=== PATIENT | female | born 1965 ===

== ENCOUNTER 2016-04-27 10:51 | Inpatient (IN) | payer BC ==
[2016-04-24 15:20] LABS: BASOPHILS 0.4 %; BASOPHILS ABSOLUTE 0.02 10/3/uL (0.0-0.16); EOSINOPHILS 1.1 %; EOSINOPHILS ABSOLUTE 0.06 10/3/uL (0.0-0.53); HEMOGLOBIN 11.6 g/dL (12.0-16.0); LYMPHOCYTES 47.5 %; MEAN CORPUS HGB CONC 32.4 g/dL (32.0-36.0); MEAN CORPUSCULAR HEMOGLOB 27.8 pg (26.0-34.0); MEAN PLATELET VOLUME 9.9 fL (9.2-13.0); MONOCYTES 3.6 %; MONOCYTES ABSOLUTE 0.19 10/3/uL (0.21-1.20); NEUTROPHILS 47.4 %; NEUTROPHILS ABSOLUTE 2.49 10/3/uL (2.02-8.40); PLATELET COUNT 230 10/3/uL (150-400); RBC DISTRIBUTION WIDTH 12.9 % (12.0-16.0); RED CELL COUNT 4.18 10/6/uL (4.0-5.6); WHITE BLOOD CELLS 5.3 10/3/uL (4.5-10.5)
[2016-04-24 15:24] LABS: HEMATOCRIT 35.8 % (36.0-48.0); MANUAL DIFF NO %; MEAN CORPUSCULAR VOLUME 85.6 fL (80-100)
[2016-04-24 15:35] LABS: BUN (BLOOD UREA NITROGEN) 11 MG/DL (6-23); CALCIUM, SERUM 8.9 MG/DL (8.5-10.4); CHLORIDE, SERUM 104 MMOL/L (96-112); CO2 (CARBON DIOXIDE) 26 MMOL/L (24-34); CREATININE 0.74 MG/DL (0.55-1.02); GFR AFRICAN AMERICAN 108 ML/MIN (>=60); GFR NON AFRICAN AMERICAN 93 ML/MIN (>=60); GLUCOSE, SERUM 86 MG/DL (60-99); POTASSIUM, SERUM 3.7 MMOL/L (3.5-5.3); SODIUM, SERUM 138 MMOL/L (135-148)
--- NOTE | ~2016-04-27 | CN ---
Consultation Report [facility] [address] [place]. [address] NAME: MACRINA MARSH : 63 STATUS : ADM IN PAT#: [id number] AGE: 51 ADM/REG DATE : 04/27/16 MR#: [id number] REPORT SERV DATE: 04/29/16 DICTATED BY: DATE: REPORT STATUS : Draft TRANSCRIBED BY: MODL DATE: 04/29/16 CONSULTATION DATE OF CONSULTATION: 04/29/2016 CHIEF COMPLAINT/REASON FOR CONSULT: Bradycardia. PRIMARY PLASTIC CUTTER: Dr. Yovany Reardon. HISTORY OF PRESENT ILLNESS: Macrina Marsh is a very pleasant 51-year-old female with a history of CVA in December of 2015 with an occluded left carotid system. She underwent a stent placement to the carotid system by Dr. Vann on 04/27/2016, and has been recovering without symptoms. During the monitoring in the CVICU, the patient has been noted to have bradycardia, and she was placed on a dopamine drip and this has since resolved. The patient's heart rate is 69 beats per minute, off dopamine. The patient has been noted to be mildly hypotensive with blood pressures ranging to a low of 82/44 overnight to a high of 132/60. The patient is currently asymptomatic sitting up in a chair. PAST MEDICAL HISTORY: 1. Peripheral vascular disease, as detailed above. 2. 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 3. Hypertension. 4. Hyperlipidemia. SOCIAL HISTORY: The patient is . She is a former smoker. She does not drink or use extracurricular drugs. ALLERGIES: SHE IS ALLERGIC TO THE ROSUVASTATIN. CURRENT INPATIENT MEDICATIONS: Include: 1. Coreg 3.125 mg p.o. b.i.d. 2. Lexapro. 3. Lipitor 20 mg p.o. daily. 4. Plavix 75 mg p.o. daily. 5. Synthroid 100 mcg p.o. daily. 6. Aspirin 81 mg p.o. daily. REVIEW OF SYSTEMS: All systems reviewed, and is negative except for as dictated in the HPI. PHYSICAL EXAMINATION: VITAL SIGNS: Current heart rate is 69 beats per minute. Blood pressure is overnight have ranged between a low of 82/44 to a high of 132/60, and oxygen saturations 94% on room air. GENERAL: Ms Marsh is a well-groomed, well-appearing 51-year-old female. She does have Consultation Report [address] [place]. [address] NAME: MACRINA MARSH : 63 STATUS : ADM IN [facility]#: [id number] AGE: 51 ADM/REG DATE : 04/27/16 MR#: [id number] REPORT SERV DATE: 04/29/16 DICTATED BY: DATE: REPORT STATUS : Draft TRANSCRIBED BY: MODL DATE: 04/29/16 expressive dysphasia, but is in no acute distress. NECK: I could not appreciate jugular venous distention or carotid bruits at this time. HEART: Regular rate and rhythm. Normal S1, S2. I could not appreciate murmurs, rubs, or gallops. LUNGS: Clear to auscultation in all shaffer. ABDOMEN: Soft and nontender. EXTREMITIES: Warm and well-perfused. I could not appreciate pitting edema. MUSCULOSKELETAL: No clubbing or cyanosis of the digits. LABORATORY DATA: Laboratory results note a hemoglobin of 10.7, hematocrit of 32.1, and a platelet count of 195. Sodium 140, a potassium of 3.4, glucose is 114, and magnesium is 1.8. Previous echocardiogram performed at [facility] demonstrated a normal left ventricular systolic function with an ejection fraction of 60% to 65%. She had moderate aortic valve regurgitation. An EKG performed on admission demonstrated normal sinus rhythm. Repeat EKG has not yet been performed. IMPRESSION, REPORT, AND PLAN: 1. Asymptomatic bradycardia, resolved. 2. Status post right carotid stent, postop day #2. 3. History of cerebrovascular accident with residual expressive aphasia. 4. Asymptomatic hypotension. RECOMMENDATIONS: 1. We would recheck all blood pressures manually. 2. We would check TSH. 3. We would recommend Holter monitor on DC. 4. We would stop dopamine and give mild fluid bolus at this time. 5. If the patient is asymptomatic and has heart rate greater than 40 and a systolic blood pressure greater than 90, she could be safely discharged for outpatient followup. 6. We would check TSH. 7. Stop Coreg. 8. We would increase Lipitor to 40 mg p.o. daily to optimize her medical regimen. It has been my pleasure to participate in her care. Please see followup appointment with Dr. Reardon as previously ordered. Please call with additional questions or change in clinical status. MASHA/DWIGHT Deborah Luong M.D. / [phone] Consultation Report [address] [place]. [address] NAME: MACRINA MARSH : 63 STATUS : ADM IN PAT#: [id number] AGE: 51 ADM/REG DATE : 04/27/16 MR#: [id number] REPORT SERV DATE: 04/29/16 DICTATED BY: DATE: REPORT STATUS : Draft TRANSCRIBED BY: DWIGHT DATE: 04/29/16 CC: Lauren Buckley NP
--- NOTE | ~2016-04-27 | OP ---
Record Of Operation [facility] [address] [place]. [address] NAME: AGUILA LOW : 63 STATUS : DIS IN PAT#: [id number] AGE: 51 ADM/REG DATE : 04/27/16 MR#: [id number] REPORT SERV DATE: 05/04/16 DICTATED BY: CHARLY VANN DATE: 05/04/16 REPORT STATUS : Draft TRANSCRIBED BY: MODRubina DATE: 05/04/16 DATE OF PROCEDURE: 04/27/2016 PREPROCEDURE DIAGNOSIS: Critical right internal carotid artery stenosis. POSTOPERATIVE DIAGNOSIS: 80% left internal carotid artery stenosis. PROCEDURE PERFORMED: 1. Angioplasty stent reconstruction of right internal carotid artery, a 10 x 30 stent, followed by a 5 x 2 angioplasty over 6 mm AngioGuard device. 2. Angioplasty of the distal internal carotid artery, 5 x 4 balloon. ANESTHESIA: Local MAC. COMPLICATIONS: None. INDICATION FOR PROCEDURE: Secondary to this very pleasant 51-year-old female presenting with a history of a stroke involving the left hemisphere subsequent to left ICA occlusion. The patient had evidence of a critical obstruction of the right internal carotid artery. Recommendation was made for arteriography to further define this, potential for endovascular repair if indicated. Risks and benefits discussed. Consent was obtained. DETAILS OF PROCEDURE: The patient was brought to the endovascular operating room, placed in supine position, prepped and draped in routine sterile fashion with attention to the bilateral groin. The right femoral artery was interrogated with ultrasound and found to be compressible. Needle was passed into this artery under direct ultrasound vision. Pictures were then taken and placed in the chart. Next, wires were passed into the arch of the aorta followed by a [place] flush catheter advanced to the arch. A 30-degree arteriogram was then performed to find the patent innominate, left common carotid artery, and left subclavian. The innominate was then cannulated with a glide catheter followed by advancement into the right common carotid artery. An arteriogram was performed in multiple different views with the lateral view showing the 80% lesion of the internal carotid artery proximally. There was noted tortuosity associated with this artery. Next, a sheath was then placed. 5000 units of heparin was given and allowed to circulate. A 6 mm AngioGuard was then passed through the stenosis into the distal carotid and it was during this passage that the distal carotid kinking moved with the filter. The filter was deployed adequately, but the kinking was noted to be severe. Next, a 10 x 30 Cordis Precise stent was then passed just into the internal carotid artery origin just beyond the stenosis and deployed. This was below the level of the kink. 5 x 2 angioplasty was then performed of this segment and this was widely patent. Next, imaging showed severe kinking associated with the filter and angioplasty was then performed after two rounds of nitroglycerin failed to release the spasm associated with the filter. 5 x 4 balloon adequately opened the internal carotid artery. The filter was then retrieved and the artery was noted to be widely patent. No complications noted. The patient was neurologically intact throughout the entire procedure. Wires, catheters, and sheaths were then removed. The right groin was then closed with Angio Seal. The patient tolerated the procedure well. Record Of Operation [facility] [address] [facility] [place]. [address] NAME: AGUILA LOW : 63 STATUS : DIS IN PAT#: [id number] AGE: 51 ADM/REG DATE : 04/27/16 MR#: [id number] REPORT SERV DATE: 05/04/16 DICTATED BY: CHARLY VANN DATE: 05/04/16 REPORT STATUS : Draft TRANSCRIBED BY: DWIGHT DATE: 05/04/16 CL/DWIGHT Charly Vann M.D. / [id number] CC: Lauren Buckley
[~2016-04-27 10:51] MED LIST: ASAB PO; COREG3 PO; LEXAPRO10 PO; LIPITOR20 PO; SYN1 PO
[2016-04-28 04:00] LABS: BASOPHILS 0.2 %; BASOPHILS ABSOLUTE 0.01 10/3/uL (0.0-0.16); EOSINOPHILS 0.9 %; EOSINOPHILS ABSOLUTE 0.06 10/3/uL (0.0-0.53); HEMOGLOBIN 10.4 g/dL (12.0-16.0); IMMATURE GRANULOCYTES 0.2 %; IMMATURE GRANULOCYTES ABSOLUTE 0.01 10/3/uL (0.0-0.11); LYMPHOCYTES 31.2 %; LYMPHOCYTES ABSOLUTE 2.04 10/3/uL (0.67-4.30); MEAN CORPUS HGB CONC 32.5 g/dL (32.0-36.0); MEAN CORPUSCULAR HEMOGLOB 28.3 pg (26.0-34.0); MEAN PLATELET VOLUME 9.8 fL (9.2-13.0); MONOCYTES 4.1 %; MONOCYTES ABSOLUTE 0.27 10/3/uL (0.21-1.20); NEUTROPHILS 63.4 %; NEUTROPHILS ABSOLUTE 4.15 10/3/uL (2.02-8.40); PLATELET COUNT 195 10/3/uL (150-400); RBC DISTRIBUTION WIDTH 12.7 % (12.0-16.0); RED CELL COUNT 3.68 10/6/uL (4.0-5.6); WHITE BLOOD CELLS 6.5 10/3/uL (4.5-10.5)
[2016-04-28 04:05] LABS: MANUAL DIFF NO %
[2016-04-28 04:26] LABS: BUN (BLOOD UREA NITROGEN) 10 MG/DL (6-23); CALCIUM, SERUM 8.5 MG/DL (8.5-10.4); CHLORIDE, SERUM 105 MMOL/L (96-112); CO2 (CARBON DIOXIDE) 25 MMOL/L (24-34); CREATININE 0.53 MG/DL (0.55-1.02); GFR AFRICAN AMERICAN 127 ML/MIN (>=60); GFR NON AFRICAN AMERICAN 109 ML/MIN (>=60); GLUCOSE, SERUM 114 MG/DL (60-99); POTASSIUM, SERUM 3.5 MMOL/L (3.5-5.3); SODIUM, SERUM 140 MMOL/L (135-148)
[2016-04-28 23:47] LABS: HEMATOCRIT 32.1 % (36.0-48.0); HEMOGLOBIN 10.7 g/dL (12.0-16.0); POTASSIUM, SERUM 3.4 MMOL/L (3.5-5.3)
[2016-04-29 11:16] LABS: FREE T4 1.4 NG/DL (0.76-1.46)
[2016-04-29 11:18] LABS: ULTRASENSITIVE TSH 0.334 MCIU/ML (0.358-3.740)
[2016-04-29] MEDS ORDERED: PCET PO (17:33)
[2016-04-29] MEDS ORDERED: PLAVIX PO (17:34)
[2016-04-29] MEDS ORDERED: LIPITOR40 PO (17:34)
== END 2016-04-29 18:27 | disposition home or self-care (01) | DRG 35 ==
LOC: SDC/OF 10:51 → PACU 14:40 → CVICU 20:40
PROVIDERS: Specialist
PROC: 037H3DZ Dilation of Right Common Carotid Artery with Intraluminal Device, Percutaneous Approach (ICD-10-PCS; principal; 2016-04-27 13:00)
PROC: B3131ZZ Fluoroscopy of Right Common Carotid Artery using Low Osmolar Contrast (ICD-10-PCS; principal; 2016-04-27 13:00)
DX: I65.21 Occlusion and stenosis of right carotid artery (principal); I69.351 Hemiplegia and hemiparesis following cerebral infarction affecting right dominant side; I10 Essential (primary) hypertension; I69.320 Aphasia following cerebral infarction; Z87.891 Personal history of nicotine dependence; I49.8 Other specified cardiac arrhythmias; Z79.84 Long term (current) use of oral hypoglycemic drugs; Z79.82 Long term (current) use of aspirin
CPT/HCPCS: 36221; 37215; 71020; 76937; 80048; 83735; 84132; 84439; 84443; 85014; 85018; 85025; 87641; 93005; 93225; A9270-GY; C1725; C1760; C1769; C1876; C1884; C1887; C1894; J0690; J2370; J2405; J3010; Q9967